=== PATIENT | female | born 1960 | race Caucasian/White ===

== ENCOUNTER 2017-02-16 00:21 | Emergency (ER) | payer SELFPAY ==
[~2017-02-16] VITALS: Ht 154.9 cm; Wt 119.4 kg
[~2017-02-16 00:21] MED LIST: PRED20TA PO
[2017-02-16 00:23] VITALS: TEMP 36.5; Ht 154.9 cm; Wt 119.4 kg
[2017-02-16] MEDS ORDERED: INSULIN IV INFUSION PROTOCOL STA (00:40)
[2017-02-16] MEDS ORDERED: SODIUM CHLORIDE 0.9% 1000ML 1,000 ML, SODIUM CHLORIDE 0.9% 1000ML 1,000 ML IV ONE (00:45)
[2017-02-16] MEDS ORDERED: DKA GOAL RANGE 150-250 mg/dl 1 EA ONE (00:45)
[2017-02-16] MEDS ORDERED: LACT1CAP6 PO (00:48)
[2017-02-16] MEDS ORDERED: IBUP-1050 PO (00:48)
[2017-02-16] MEDS ORDERED: INSULIN HUMAN REGULAR IV BOLUS 4.5 UNIT in SYRINGE 0 ML IV STA (00:55)
[2017-02-16] MEDS ORDERED: CLR10 PO (00:56)
[2017-02-16] MEDS ORDERED: PSEU60TA52 PO (00:56)
[2017-02-16] MEDS ORDERED: INSULIN REGULAR 250 UNITS in SODIUM CHLORIDE 0.9% 250ML 250 ML IV STA (00:56)
[2017-02-16] MEDS ORDERED: SALINE MIST NAE (00:56)
[2017-02-16] MEDS ORDERED: GLUCAGON FOR INJ 1 MG VIAL SQ PRN (01:00)
[2017-02-16] MEDS ORDERED: DEXTROSE 50% 50 ML SYR IV PRN (01:00)
[2017-02-16] MEDS ORDERED: GLUCOSE 40% GEL 15 GM TUBE PO PRN (01:00)
[2017-02-16] MEDS ORDERED: GLUCOSE 10 TABS/TUBE PO PRN (01:00)
[2017-02-16 01:08] LABS: BASO % 0.2 %; BASO ABS # 0.01 K/uL (0-0.2); COMPLETE YES; EOS % 0.8 %; HEMATOCRIT 42.5 % (37-47); IG% 0.2 %; LYMPH % 45.7 %; LYMPH ABS # 2.42 K/uL (1.2-3.4); MEAN CELL VOLUME 84.3 fL (80-100); MEAN CORPUSCULAR HEMOGLOBIN 27.8 pg (25-34); MEAN CORPUSCULAR HGB CONC 32.9 g/dl (32-36); MEAN PLATELET VOLUME 11.7 fL (7.4-10.4); MONO % 5.1 %; PLATELET COUNT 135 K/uL (130-400); RED BLOOD COUNT 5.04 M/uL (4.2-5.4)
[2017-02-16 01:29] LABS: URINE APPEARANCE CLEAR (CLEAR); URINE BILIRUBIN NEG (NEG); URINE COLOR YELLOW; URINE NITRITE NEG (NEG); URINE SPECIFIC GRAVITY 1.034 (1.000-1.030); UROBILINOGEN NEG (NEG); ZZUR CULT IF INDIC CLEAN CATCH NO
[2017-02-16 01:32] LABS: ALB/GLOB RATIO 1.2 (0.9-2); BUN/CREATININE RATIO 11.8 (10-20); CREATININE 1.1 mg/dl (0.60-1.20); POTASSIUM 4.2 mmol/L (3.5-5.1)
[2017-02-16 01:39] LABS: MANUAL MICROSCOPIC REQUIRED? NO; REVIEW REQ? NO
[2017-02-16 01:47] LABS: BETA-HYDROXYBUTYRATE 1.25 mg/dL (0.2-2.81)
[2017-02-16] MEDS ORDERED: FLUCONAZOLE 50 MG TAB PO ONE (02:45)
[2017-02-16 03:52] VITALS: BP 122/77; PULSE 66; O2SAT 94
--- NOTE | 2017-02-16 22:39 | EMERGENCY ROOM VISIT NOTE ---
History First contact with patient: 00:30 Chief Complaint: HYPERGLYCEMIA Stated Complaint: SUGAR LEVEL OVER 600 Nursing Triage Summary: Pt states she hasn't been feeling well for a couple weeks. Reporting H/A, back pain, chest pain, SOB. Reporting high levels of stress. Pt checked her blood sugar tonight and noticed it was >600. Pt states "I don't have insurance and can't get my diabetic medications". History of Present Illness The patient is a 56 year old female who presents to the Emergency Room with complaints of elevated blood sugar at home. The patient has a long-standing history of diabetes, but states that she lost her insurance about 1 year ago, and has now been on any diabetic medications. She states that she has prescriptions for metformin and insulin, but does not have the ability to pay for her medicine. She has been under increased stress the past few days secondary to legal problems in the family, and has had excessive thirst and urination. She states that her blood sugar typically runs in the 300s, but tonight her glucometer read "high". Because of this she now presents to the emergency department for evaluation. The patient rates her overall discomfort a 7/10. She has a history of fibromyalgia and does report some ongoing chronic extremity and back discomfort. She states that she felt dehydrated tonight and did drink 2 bottles of Gatorade. Review of Systems More than 10 systems were reviewed and otherwise negative with the exception of history of present illness. Past Medical/Surgical History Type 2 diabetes, fibromyalgia Family History No pertinent family history Social History Smoking Status: Former Smoker Alcohol Use: none Marital Status: Housing Status: lives with family Occupation Status: unemployed Current/Historical Medications Scheduled Lactobacillus (Probiotic), 1 CAP PO DAILY Loratadine (Claritin), 10 MG PO DAILY Scheduled PRN Ibuprofen (Advil), 200-600 MG PO Q4H PRN for Pain Pseudoephedrine Hcl (Pseudoephedrine Hcl), 1 DOSE PO DIRECTED PRN for SINUS CONGESTION [Saline Nasal Mist], 1 DOSE KRISHNA DIRECTED PRN for DRYNESS Allergies Coded Allergies: Dust (Verified Allergy, Intermediate, CONGESTION, ITCHY EYES, SNEEZING, 02/16/17) Molds and Smuts (Verified Allergy, Intermediate, CONGESTION, SNEEZING, 02/16) POLLEN (Verified Allergy, Intermediate, CONGESTION, ITCHY EYES, 02/16/17) Fish (Verified Allergy, Unknown, UNKNOWN, 02/16/17) TESTED FOR FISH ALLERGY Fish Allergy (Verified Allergy, Unknown, UNKNOWN, 02/16/17) WAS TESTED FOR FISH ALLERGY Codeine (Verified Adverse Reaction, Intermediate, NAUSEA, 02/16/17) Physical Exam Vital Signs Date Time Temp Pulse Resp B/P Pulse Ox O2 Delivery O2 Flow Rate FiO2 02/16/17 03:52 66 18 122/77 94 Room Air 02/16/17 03:05 66 18 145/76 98 Room Air 02/16/17 02:03 65 16 151/94 96 Room Air 02/16/17 00:23 36.5 70 20 149/82 96 Room Air Pain Rating (0-10): 0 Physical Exam VITALS: Vitals are noted on the nurse's note and reviewed by myself. Vital signs stable. GENERAL: Well-developed, well-nourished, obese white female, who is in no acute distress and resting comfortably. Patient is cooperative with the examination. HEAD: Normocephalic atraumatic. EARS: External ear normal. External auditory canals clear, tympanic membranes pearly del rosario without erythema or effusion bilaterally. EYES: Pupils equal round and reactive to light and accommodation. Conjunctivae without injection, sclerae without icterus. Extraocular movements intact. NOSE: Patent, turbinates without inflammation or discharge. MOUTH: Mucous membranes moist. Tonsils are not enlarged. Pharynx without erythema, blood, or exudate. Uvula midline. Airway patent. NECK: Supple without nuchal rigidity. No lymphadenopathy. No thyromegaly. Cervical spine is nontender. HEART: Regular rate and rhythm without murmurs gallops or rubs. LUNGS: Clear to auscultation bilaterally without wheezes, rales or rhonchi. No retractions or accessory muscle use. ABDOMEN: Positive normal bowel sounds x 4. Soft, nontender, without masses or organomegaly. No guarding or rebound tenderness. MUSCULOSKELETAL: No muscle atrophy, erythema, or edema noted. Full range of motion without joint tenderness in all extremities. Medical Decision & Procedures Laboratory Results 02/16/17 00:35 Red Blood Count 5.04, Mean Corpuscular Volume 84.3, Mean Corpuscular Hemoglobin 27.8, Mean Corpuscular Hemoglobin Concent 32.9, Mean Platelet Volume 11.7, Neutrophils (%) (Auto) 48.0, Lymphocytes (%) (Auto) 45.7, Monocytes (%) (Auto) 5.1, Eosinophils (%) (Auto) 0.8, Basophils (%) (Auto) 0.2, Neutrophils # (Auto) 2.55, Lymphocytes # (Auto) 2.42, Monocytes # (Auto) 0.27, Eosinophils # (Auto) 0.04, Basophils # (Auto) 0.01 02/16/17 00:35 Test 02/16/17 00:35 02/16/17 00:58 02/16/17 03:47 White Blood Count 5.30 K/uL (4.8-10.8) Red Blood Count 5.04 M/uL (4.2-5.4) Hemoglobin 14.0 g/dL (12.0-16.0) Hematocrit 42.5 % (37-47) Mean Corpuscular Volume 84.3 fL (80-100) Mean Corpuscular Hemoglobin 27.8 pg (25-34) Mean Corpuscular Hemoglobin Concent 32.9 g/dl (32-36) Platelet Count 135 K/uL (130-400) Mean Platelet Volume 11.7 fL (7.4-10.4) Neutrophils (%) (Auto) 48.0 % Lymphocytes (%) (Auto) 45.7 % Monocytes (%) (Auto) 5.1 % Eosinophils (%) (Auto) 0.8 % Basophils (%) (Auto) 0.2 % Neutrophils # (Auto) 2.55 K/uL (1.4-6.5) Lymphocytes # (Auto) 2.42 K/uL (1.2-3.4) Monocytes # (Auto) 0.27 K/uL (0.11-0.59) Eosinophils # (Auto) 0.04 K/uL (0-0.5) Basophils # (Auto) 0.01 K/uL (0-0.2) RDW Standard Deviation 39.9 fL (36.4-46.3) RDW Coefficient of Variation 13.1 % (11.5-14.5) Immature Granulocyte % (Auto) 0.2 % Immature Granulocyte # (Auto) 0.01 K/uL (0.00-0.02) Anion Gap 9.0 mmol/L (3-11) Est Creatinine Clear Calc Drug Dose 69.7 ml/min Estimated GFR () 65.5 Estimated GFR (Non- 56.5 BUN/Creatinine Ratio 11.8 (10-20) Calcium Level 9.0 mg/dl (8.5-10.1) Total Bilirubin 1.3 mg/dl (0.2-1) Aspartate Amino Transf (AST/SGOT) 28 U/L (15-37) Alanine Aminotransferase (ALT/SGPT) 48 U/L (12-78) Alkaline Phosphatase 91 U/L (45-117) Total Protein 7.1 gm/dl (6.4-8.2) Albumin 3.8 gm/dl (3.4-5.0) Globulin 3.3 gm/dl (2.5-4.0) Albumin/Globulin Ratio 1.2 (0.9-2) Lipase 278 U/L (73-393) Beta-Hydroxybutyric Acid 1.25 mg/dL (0.2-2.81) Urine Color YELLOW Urine Appearance CLEAR (CLEAR) Urine pH 6.0 (4.5-7.5) Urine Specific Anderson 1.034 (1.000-1.030) Urine Protein NEG (NEG) Urine Glucose (UA) 3+ (NEG) Urine Ketones NEG (NEG) Urine Occult Blood NEG (NEG) Urine Nitrite NEG (NEG) Urine Bilirubin NEG (NEG) Urine Urobilinogen NEG (NEG) Urine Leukocyte Esterase NEG (NEG) Bedside Glucose 317 mg/dl (70-90) Medications Administered Medications (Trade) Dose Ordered Sig/Brandon Route Start Time Stop Time Status Last Admin Dose Admin Sodium Chloride/ Sodium Chloride 2,000 ml @ 999 mls/hr Q2H1M ONCE IV 02/16/17 00:45 02/16/17 02:45 DC 02/16/17 01:12 999 MLS/HR Insulin Human Regular 4.5 unit/ Syringe 4.5 ml @ 1 mls/min NOW STAT IV 02/16/17 00:55 02/16/17 00:59 DC 02/16/17 01:11 1 MLS/MIN Insulin Human Regular/Sodium Chloride (novoLIN-R/Nss 250ml) 252.5 ml @ 0 mls/hr NOW STAT IV 02/16/17 00:56 02/16/17 00:57 DC 02/16/17 01:12 4.5 MLS/HR Fluconazole (Diflucan Tab) 150 mg NOW ONCE PO 02/16/17 02:45 02/16/17 02:46 DC 02/16/17 02:52 150 MG ED Course Physical exam and history were performed. Nursing notes and EMR were reviewed. Patient appears to have a history of diabetes with elevated blood glucose. Bedside glucose was performed by nursing upon my presentation to the room, and her sugar is 592. IV access was established and labs were obtained. The patient was vigorously hydrated with 2 L normal saline. She was started on insulin here in the department. Urine was collected. The patient's blood work is as above and was reviewed. She does not have a significantly elevated white blood cell count, gross anemia, bandemia, or gross electrolyte imbalance. Her sugar was 640 on lab draw, but this did improve with insulin and serial glucose checks. The patient does not appear to have ketones in her system or urine. The patient was reevaluated multiple times with course of her stay. She continued to feel improved as her sugar came down. I did discuss the case with my attending physician, and also with case management. At this time the patient does have normal vital signs and her sugar is improving. She likely has type 2 diabetes with a chronic and persistent elevated sugar level. She appears to have outpatient prescriptions, but cannot afford to pay for her medicine. The patient does not appear to meet criteria for admission to their facility, but I do recognize that she has a very pressing need for outpatient care. She may qualify for services locally that will help her pay for her medication. Unfortunately she is here in the middle of the night, and we cannot facilitate these directly at this time. The patient will be given information for [facility], and case management will follow with the patient this week. We will attempt to provide the patient is many outpatient resources as possible, as I feel that she will have significant adverse health issues if she is not able to control her sugar. I did have a lengthy and miles discussion with her and her about her diabetes, and the importance of glucose monitoring. She needs to avoid sugary drinks, and concentrate on drinking water. She needs to arrange resources this week. She was otherwise invited back to the ER with any new, worsening, or concerning symptoms. . The chart was completed utilizing [employer] Voice Recognition Software. Grammatical errors, random word insertions, pronoun errors, and incomplete sentences are an occasional consequence of this system due to software limitations, ambient noise, and hardware issues. Any formal questions or concerns about the content, text, or information contained within the body of this dictation should be directly addressed to the provider for clarification. . Medical Decision Differential diagnosis: Etiologies such as metabolic, infection, hyperglycemia, DKA, hypoglycemia, electrolyte abnormalities, as well as others were entertained. Impression Primary Impression: Diabetes mellitus with hyperglycemia Departure Information Dispostion Home / Self-Care Condition GOOD Referrals [facility] Forms HOME CARE DOCUMENTATION FORM, IMPORTANT VISIT INFORMATION Patient Instructions My [facility] Additional Instructions You were seen and evaluated today on an emergency basis only. This is not a substitute for, or an effort to provide, complete comprehensive medical care. It is not possible to recognize and treat all injuries or illnesses in a single emergency department visit. For this reason it is recommended that you followup with [facility] first thing Friday morning by telephone to arrange a follow-up. Case management from the ER will follow up with you later this week. Avoid carbohydrates and sugar. Drink plenty of water. You are welcome to return to the emergency department anytime with new, worsening, or concerning symptoms.
[2017-02-17 06:42] LABS: ESTIMATED AVERAGE GLUCOSE 344 mg/dl; HA1C FLAG Normal (Normal)
== END 2017-02-16 03:49 | disposition home or self-care (01) ==
LOC: C.EDB 00:22 → C.EDA 03:49
DX: E11.65 Type 2 diabetes mellitus with hyperglycemia (principal); M79.7 Fibromyalgia; Z87.891 Personal history of nicotine dependence

== ENCOUNTER → 2017-07-28 | Outpatient (CLI) | payer OTHER ==
[~2017-07-28] MED LIST changes: +CLR10 PO; +IBUP-1050 PO; +LACT1CAP6 PO; -PRED20TA PO; +PSEU60TA52 PO; +SALINE MIST NAE
--- NOTE | 2017-07-28 08:41 | DIAGNOSTIC IMAGING REPORT ---
MRI OF THE BRAIN WITHOUT CONTRAST CLINICAL HISTORY: Headache, memory loss. Bowel difficulty. COMPARISON STUDY: None. FINDINGS: Sagittal T1, axial diffusion, proton density and T2 weighted axial, coronal FLAIR, and axial T1-weighted images were acquired. No intra or extra-axial mass lesions are visualized Axial diffusion-weighted images reveal no evidence of acute or subacute infarction. There is no evidence of ventricular dilatation. Proton density T2-weighted and FLAIR images reveal scattered foci of increased T2 signal within the white matter, likely on a small vessel basis. There are no abnormal flow voids. There is a small inflammatory polyp/retention cyst within the right maxillary sinus. IMPRESSION: 1. No evidence of intracranial mass 2. No evidence of acute or subacute infarction 3. Mild scattered foci of increased T2 and FLAIR signal within the white matter, likely on a small vessel basis Electronically signed by: Chip Holloway M.D. 07/28/2017 8:40 AM Dictated Date/Time: 07/28/2017 8:37 AM
== END | disposition home or self-care (01) ==
LOC: C.MRIBC 07:48
PROVIDERS: ATTEND Psychiatry & Neurology Neurology
DX: R41.3 Other amnesia (principal); R51 Headache

== ENCOUNTER → 2017-09-29 | Outpatient (CLI) | payer OTHER ==
[2017-09-29 17:50] LABS: URINE APPEARANCE CLEAR (CLEAR); URINE BILIRUBIN NEG (NEG); URINE COLOR YELLOW; URINE EPITHELIAL CELL AUTO >30 /lpf (0-5); URINE NITRITE NEG (NEG); URINE SPECIFIC GRAVITY 1.018 (1.000-1.030); UROBILINOGEN NEG (NEG); ZZUR CULT IF INDIC CLEAN CATCH NO
[2017-09-29 17:50] LABS: ALT/SGPT 42 U/L (12-78); BLOOD UREA NITROGEN 10 mg/dl (7-18); BUN/CREATININE RATIO 14.6 (10-20); CALCIUM 8.9 mg/dl (8.5-10.1); CARBON DIOXIDE 27 mmol/L (21-32); CHLORIDE 104 mmol/L (98-107); CHOLESTEROL 185 mg/dl (0-200); CREATININE 0.71 mg/dl (0.60-1.20); GLUCOSE,FASTING 147 mg/dl (70-99); POTASSIUM 4.2 mmol/L (3.5-5.1); SODIUM 139 mmol/L (136-145); TRIGLYCERIDES 121 mg/dl (0-150); VERY LOW DENSITY LIPOPROT CALC 24 mg/dl
[2017-09-29 17:58] LABS: MANUAL MICROSCOPIC REQUIRED? NO; REVIEW REQ? NO
[2017-09-29 18:01] LABS: ALB/GLOB RATIO 1.1 (0.9-2); ALKALINE PHOSPHATASE 73 U/L (45-117); AST/SGOT 37 U/L (15-37); CHOLESTEROL/HDL RATIO 3.7; HDL CHOLESTEROL 50 mg/dl; LDL CHOLESTEROL CALCULATED 111 mg/dl
[2017-09-30 07:45] LABS: ESTIMATED AVERAGE GLUCOSE 169 mg/dl; HA1C FLAG Normal (Normal)
== END | disposition home or self-care (01) ==
LOC: C.LABPBG 12:35
PROVIDERS: ATTEND Physician Assistant
DX: Z00.00 Encounter for general adult medical examination without abnormal findings (principal); R39.9 Unspecified symptoms and signs involving the genitourinary system; E55.9 Vitamin D deficiency, unspecified; E03.9 Hypothyroidism, unspecified; E11.9 Type 2 diabetes mellitus without complications

== ENCOUNTER → 2017-10-01 | Outpatient (CLI) | payer OTHER ==
[2017-10-01 17:31] LABS: BASO % 0.2 %; BASO ABS # 0.01 K/uL (0-0.2); COMPLETE YES; EOS % 1.9 %; HEMATOCRIT 41.1 % (37-47); IG% 0.3 %; LYMPH % 33.1 %; LYMPH ABS # 1.91 K/uL (1.2-3.4); MEAN CELL VOLUME 86.3 fL (80-100); MEAN CORPUSCULAR HEMOGLOBIN 28.8 pg (25-34); MEAN CORPUSCULAR HGB CONC 33.3 g/dl (32-36); MEAN PLATELET VOLUME 10.8 fL (7.4-10.4); MONO % 5.4 %; NEUT % 59.1 %; PLATELET COUNT 156 K/uL (130-400); RED BLOOD COUNT 4.76 M/uL (4.2-5.4); WHITE BLOOD COUNT 5.77 K/uL (4.8-10.8)
[2017-10-01 18:22] LABS: LYME DISEASE AB IGG NEG (NEG); LYME DISEASE AB IGM NEG (NEG)
== END | disposition home or self-care (01) ==
LOC: C.LABPBG 15:23
PROVIDERS: ATTEND Family Medicine
DX: M79.7 Fibromyalgia (principal); R53.81 Other malaise

== ENCOUNTER → 2017-12-09 | Outpatient (CLI) | payer OTHER ==
[~2017-12-09] MED LIST changes: +PSEU60TA26 PO; -PSEU60TA52 PO
== END | disposition home or self-care (01) ==
LOC: C.LABPBG 10:30
PROVIDERS: ATTEND Family Medicine
DX: E03.9 Hypothyroidism, unspecified (principal)

== ENCOUNTER → 2018-01-02 | Outpatient (CLI) | payer OTHER | END | disposition home or self-care (01) | LOC: C.LABSPEC 14:32 | PROVIDERS: ATTEND Family Medicine | DX: R10.9 Unspecified abdominal pain (principal) ==

== ENCOUNTER → 2018-01-14 | Outpatient (CLI) | payer OTHER ==
--- NOTE | 2018-01-15 05:40 | PAP/PSG TECHNICIAN REPORT ---
[facility] Cut Off Worker Polysomnogram Report Study name: None Report date: 01/15/2018 Study date: 01/14/2018 Referring Physician: Zuly Pagan DO Name: ZACKARY CHARLEE J Interpreting Physician: Justin Pierson M.D. Date of : 1960 Cut Off Worker: HERIBERTO Nunez. Sex: Female Age: 57 StudyType: PSG Weight: 276 lbs Height: 57 years, Height 5' 1" Neck Circum:17.5inches BMI: 52.14 Medications: Duloxetine 60 mg, Ventolin HFA 108 (90 base) mcg/act, Metformin 1000 mg, Novofine 30G X 8 mm, Cyclobenzaprine 10 mg, Levothyroxine 112 mcg, Basaglar Kwikpen 100 unit/ml, Vit D 68285 unit Patient History Study started on room air with no ETCO2 monitoring in room #8. 57 yr old female here tonight for a possible split psg. She has had several sleep studies. The results of the last sleep study showed no apnea. She has been having EDS. She is not sure if she snores. Her ESS=10/24. Neck circ=17.5inches. Parameters Monitored NPSG: E1-M2, E2-M1, Fp1-M2, Fp2-M1, F3-M2, F4-M2, F4-M1, C3-M2, C4-M2, C4-M1, O1-M2, O2-M2, O2-M1, T3-M2, T4-M1, P3-M2, P4-M1, CHIN1, CHIN2, HR, EKG, Legs, PFLOW, SNOR, FLOW, CFLOW, Tidal Volume, THOR, ABDO, SpO2, PLTH, CPRESS, ETCO2 Wave, ETCO2, pH Sleep Architecture Sleep Stages Time at Lights Off 10:39:49 PM STAGES Time (min.) TST (%) Time at Lights On 5:16:19 AM Wake 200.0 -- Total Recording Time (TRT) 396.50 min. N1 10.5 5 Total Sleep Period (TSP) 215.0 min. N2 117.0 60 Total Sleep Time (TST) 196.5min. N3 69.0 35 Awake Time 200.0 min. REM 0.0 0 Wake after Sleep Onset 47.0 min. Sleep Efficiency (SE) 50 % Sleep Onset Latency (REY) 153.0 min. Number of Stage 1 Shifts None Awakenings 13 Stage Changes 66 Number of REM periods N/A REM 0.0 0 REM Latency NONE min. NREM 196.5 100 Body Position Analysis Supine Right Left Side Prone Vertical Total Sleep Time (min.) 193.5 0.0 162.0 162.00 0.0 0.0 Total Sleep Time (%) 18% 0% 82% 82 0% N/A% Total Sleep Time REM (min.) 0.0 0.0 0.0 None 0.0 0.0 Total Sleep Time NREM (min.) 34.5 0.0 162.0 None 0.0 0.0 Intermittent Wake (min.) 159.0 0.0 41.0 None 0.0 0.0 Total Sleep Period (%) 19% None None None None None Arousals Myoclonus (PLM) * Events Count Index Events Count Index Spontaneous 13 4 Events Awake (PLMW) 357 107.1 Respiratory 0 0.0 Events Asleep w/ Arousal (PLMA) 16 4.9 PLM 15 5 Events Asleep w/o Arousal (PLMS) 79 24.1 Snoring 6 2 Total Asleep 95 29.0 Total 34 10 Total 452 68 Respiratory Analysis * CA OA MA CH H RERA Total Count 0 0 0 0 2 0 2 Index 0.0 0.0 0.0 0 0.6 0 0.6 Mean Duration 0.0 0.0 0.0 0.00 19.4 0.0 19.4 Longest Duration 0.0 0.0 0.0 0.00 0.0 0.0 27.2 Respiratory Event Summary Total Supine ~Supine Right Left Prone REM NREM Apneas Count 0 0 0 N/A 0 N/A N/A 0 Index 0.0 0 0 N/A 0.0 N/A N/A 0 Hypopneas (4% Desat) Count 2 2 0 N/A 0 N/A N/A 2 Index 0.6 3.5 0 N/A 0.0 N/A N/A 0.6 Apneas & All Hypopneas Count 2 2 0 N/A 0 N/A N/A 2 Index 0.6 3 0 N/A 0 N/A N/A 0.6 Respiratory Events (Talent Program Manager+All Hyp+RERA) Count 2 2 0 N/A 0 N/A N/A 2 Index 0.6 3 0 N/A 0.0 N/A N/A 0.6 Respiratory Related Arousal Count 0 2 0 N/A 0 N/A N/A 0 Index 0.0 0 0 N/A 0 N/A N/A 0 Snoring Analysis Supine Right Left Prone REM NREM Total Snore duration 13.1 min Snores count 36 N/A 627 N/A N/A 663 663 Snore mean duration 1.2 Sec Snores index 63 N/A 232 N/A N/A 202.4 202.4 TST with snoring (%) 6.7% Desaturation Event Summary: Minimum %SpO2 Event Count Mean/Min/Max Duration(sec.) Desaturation Index % Time In Bed > 90 28 26.2 / 6.3 / 60.0 4.7 97.1 86 - 90 0 N/A 0.0 2.8 81 - 85 0 N/A 0.0 0.1 76 - 80 0 N/A 0.0 0.0 71 - 75 0 N/A 0.0 0.0 66 - 70 0 N/A 0.0 0.0 61 - 65 0 N/A 0.0 0.0 56 - 60 0 N/A 0.0 0.0 51 - 55 0 N/A 0.0 0.0 < 50 0 N/A 0.0 0.0 Total REM NREM Awake <50% 0.0 min. 0.0 min. 0.0 min. 0.0 min. 51 - 60% 0.0 min. 0.0 min. 0.0 min. 0.0 min. 61 - 70% 0.0 min. 0.0 min. 0.0 min. 0.0 min. 71 - 80% 0.0 min. 0.0 min. 0.0 min. 0.0 min. 81 - 90% 10.6 min. 0.0 min. 7.4 min. 3.2 min. 91 - 100% 359.6 min. 0.0 min. 189.1 min. 170.4 min. Average 93 0 92 94 Minimum SpO2 83 N/A 88 83 Desaturation Event Index 4.2 0.0 2.4 6.0 # Desat. Events below 89% 2 N/A 1 1 Time(%) with Saturation below 89% 0.1 0.0 0.0 0.1 Time(min.) with Saturation below 89% 0.5 0.0 0.1 0.4 Time (mins) REM (mins) NREM (mins) % of TST SpO2 Below 90% 5 N/A N5 0.5 SpO2 Below 88% 0 0 0 0 Heart Rate Analysis Min (bpm) Max (bpm) Average (bpm) Awake 67 150 83 NREM 65 86 74 REM N/A N/A N/A Overall 65 86 74 Supplemental O2 Values Minimum O2 level: None Value Start Time End Time Cut Off Worker Comments Mrs. Mcgee slept in the right, left and supine positions. Cardiac arrhythmia and PLM's noted. No bruxism noted. Snoring was noted and scored as a 3 on a scale of 1 through 5. (0=no snoring, 5=snoring loud enough to be heard through a closed door or down the wright way) She awoke to use the restroom once during the night. She stated that she slept poorly but that sometimes this is a typical night since her left her. The final report will be interpreted and signed by a sleep physician. The completed physician report will then be placed in the patient medical record. Therapy (cm H2O) 0 TIB (min.) 396.5 TST (min.) 196.5 Sleep Onset (min.) 153.0 REM Onset From Sleep (min.) NONE Sleep Efficiency % 50 Wakefulness (%) 50 Wakefulness (min.) 200.0 NREM 1 (%) 5 NREM 1 (min.) 10.5 NREM 2 (%) 60 NREM 2 (min.) 117.0 NREM 3 (%) 35 NREM 3 (min.) 69.0 REM (%) 0 REM (min.) 0.0 # Arousals 34 Arousal Index 10 # Snore 663 Snore Index 202.4 AHI 0.6 AHI Supine 3 AHI Non-Supine 0 NREM AHI 0.6 REM AHI N/A RDI 0.6 # Obstructive Apnea 0 # Central Apnea 0 # Mixed Apnea 0 # Hypopneas 2 RERAs 0 Total Respiratory Events 3 Time Below SpO2 89% (min.) 0.1 Mean NREM SpO2 (%) 92 Mean REM SpO2 (%) N/A Mean Sleep SpO2 (%) 92 Min NREM SpO2 (%) 88 Min REM SpO2 (%) N/A Position Supine (min.) 193.5 Position Non-supine (min.) 162.0 LM Index Sleep 29.0 LM Index NREM 29.0 LM Index REM N/A Mean Heart Rate (bpm) 74 Min Heart Rate (bpm) 65
--- NOTE | 2018-01-16 10:34 | POLYSOMNOGRAPH REPORT ---
CLINICAL DATA: A 57-year-old female with BMI of [address] Pagan for a sleep study. She is having excessive daytime sleepiness. Her [place] sleepiness score is 10/24. SLEEP ARCHITECTURE: Total recording time was 396.5 minutes. Total sleep period was 215 minutes. Total sleep time was 196.5 minutes all non-REM sleep. Sleep onset latency was delayed at 153 minutes. Sleep efficiency was 50%. Wake after sleep onset was 47 minutes. Sleep consisted of stage N1 5%, stage N2 60%, and stage N3 35%. AROUSAL DATA: 34 arousals were recorded for an index of 10 per hour. Fifteen were due to PLMs events. PLM DATA: Mildly elevated limb movements during sleep were noted. There were 95 limb movements during sleep noted for an index of 29 per hour with arousal index of 5 per hour. RESPIRATORY DATA: There was no evidence of clinically significant sleep apnea seen. The AHI was 0.6. There were 2 hypopneic episodes with a mean duration of 19.4 seconds. OXIMETRY DATA: No hypoxemia was seen. Oxygen sukhdev was 88%. Mean saturation was 93%. EKG: Heart rate ranged from 65-86 beats per minute. Occasional aberrantly conducted PACs were seen. TERMITE CONTROL SERVICER'S COMMENTS: The patient slept in the right, left, and supine position. Snoring was moderate, rated 3 on a scale of 1-5. IMPRESSION: 1. No evidence of clinically significant sleep apnea/hypopnea, nocturnal hypoxemia on this limited sleep study. 2. Mildly elevated limb movements during sleep. 3. Prolonged sleep onset latency. Frequent nocturnal arousals, question secondary to insomnia. RECOMMENDATIONS: The patient should continue to practice good sleep hygiene. Weight loss may be of benefit. If the patient has a history of restless leg syndrome, workup and treatment for RLS/PLMD may be of benefit. Treatment for insomnia may be of some help. Clinical correlation is needed. [facility]
== END | disposition home or self-care (01) ==
LOC: C.NEUR 20:00
PROVIDERS: ATTEND Family Medicine
DX: G47.30 Sleep apnea, unspecified (principal)